=== PATIENT | female | born 1950 | race Caucasian/White ===

== ENCOUNTER 2017-11-26 08:06 | Day surgery (SDC) | payer MEDICARE, OTHER ==
[2017-11-26] MEDS ORDERED: LIDOCAINE 2% (SDV) 5 ML INJ (09:29)
[2017-11-26] MEDS ORDERED: PROPOFOL 40 ML (09:29)
== END 2017-11-26 16:28 | disposition home or self-care (01) ==
LOC: GIL 08:06
DX: K92.1 Melena (principal); K64.8 Other hemorrhoids; I10 Essential (primary) hypertension; E11.9 Type 2 diabetes mellitus without complications
CPT/HCPCS: 45378